=== PATIENT | male | born 1955 | race Hispanic/Latino ===

== ENCOUNTER → 2023-10-04 09:21 | Outpatient (REF) | payer OTHER, SELFPAY | LOC: RAD 09:21 | PROVIDERS: ATTENDING PHYSICIAN Specialist; FAMILY PHYSICIAN Internal Medicine Infectious Disease | DX: N20.0 Calculus of kidney (principal) | CPT/HCPCS: 74018 ==

== ENCOUNTER → 2023-10-18 11:24 | Outpatient (REF) | payer OTHER, SELFPAY ==
[2023-10-18 12:41] LABS: Intact PTH 89.7 pg/ml (13.6-85.8)
[2023-10-18 13:05] LABS: Calcium 10.6 mg/dl (8.4-10.2)
== END ==
LOC: REG 11:24
PROVIDERS: ATTENDING PHYSICIAN Internal Medicine Infectious Disease
DX: E83.52 Hypercalcemia (principal)
CPT/HCPCS: 36415; 83970

== ENCOUNTER → 2023-10-22 08:59 | Outpatient (REF) | payer OTHER, SELFPAY ==
[2023-10-22 11:50] LABS: Urine Calcium 21.5 mg/dl
[2023-10-22 11:51] LABS: 24 Hour Urine Total Volume 1000 ml
== END ==
LOC: RAD 08:59
PROVIDERS: ATTENDING PHYSICIAN Internal Medicine Infectious Disease
DX: E83.52 Hypercalcemia (principal)
CPT/HCPCS: 77080; 81050; 82340

== ENCOUNTER → 2024-10-01 15:10 | Outpatient (REF) | payer MEDICARE, SELFPAY | LOC: RAD 15:10 | PROVIDERS: ATTENDING PHYSICIAN Specialist; FAMILY PHYSICIAN Internal Medicine Infectious Disease | DX: N20.0 Calculus of kidney (principal) | CPT/HCPCS: 74018 ==